=== PATIENT | female | born 1945 | race Caucasian/White ===

== ENCOUNTER 2025-01-14 07:26 | Day surgery (SDC) | payer MEDICARE, SELFPAY ==
[2025-01-14] VITALS (11 sets, daily range): BP systolic 118–151; BP diastolic 57–80; PULSE 58–72; RESP 10–20; TEMP 36.8; O2SAT 93–98; BMI 32.4
--- OUTSIDE RECORDS SUMMARY | 2025-01-14 07:33 | XMS_ITS | Clinical Summary ---
Author Organization [facility] Address [address] [place] [address] Care Team Providers Care Practicing Md Anesthesiologist Name Role Phone Bri Lechuga MD Unavailable [phone] Jazzmine Gilmore MD Primary Care Provider [phone] Allergies No known active allergies Medications multivitamin capsuleIndications :Healthcare maintenance Take 1 capsule by mouth once daily. 90 capsule 3 6 Active cholecalciferol (VITAMIN D) 1,000 unit capsuleIndications :Vitamin D deficiency Take 1 capsule by mouth once daily. 90 capsule 3 6 Active aspirin (ECOTRIN) 81 mg enteric coated tablet Take 1 tablet by mouth once daily with a meal. 0 7 Active triamcinolone 0.5% (ARISTOCORT) 0.5 % creamIndications:H and dermatitis Apply topically to affected area(s) 2 times daily. 100 g 2 0 Active diclofenac topical (VOLTAREN) 1 % gelIndications:Levi ateral hand pain,Chronic pain of right knee Apply 2 g topically to affected area(s) four times daily. 350 g 3 4 Active amLODIPine (NORVASC) 10 mg tabletIndications: Primary hypertension Take 1 Tablet (10 mg) by mouth once daily. 90 Tablet 1 5 Active rosuvastatin (CRESTOR) 20 mg tabletIndications: Hyperlipidemia, unspecified hyperlipidemia type Take 1 Tablet (20 mg) by mouth at bedtime. 90 Tablet 3 5 Active sertraline (ZOLOFT) 50 mg tabletIndications: Major depressive disorder with single episode, in full remission Take 1 Tablet (50 mg) by mouth once daily in the morning. 90 Tablet 3 5 Active omeprazole 20 mg tabletIndications: Abdominal pain, RUQ (right upper quadrant) Take 1 Tablet (20 mg) by mouth once daily before a meal. 30 Tablet 5 Active Active Problems Problem Noted Date Diagnosed Date Primary hypertension 12/05/2024 Gallbladder polyp 12/05/2024 Stage 3a chronic kidney disease 12/05/2024 Major depressive disorder wi th single episode, in full remission 12/19/2018 Diabetes type 2, controlled 03/30/2016 Elevated LFTs 12/14/2015 Hyperlipidemia 12/10/2014 Vitamin D deficiency 12/09/2014 Routine general medical exam ination at a health care facility 12/09/2014 Overview (12/09/2014): Normal dexa 2006. Consider recheck age 71. Posttraumatic stress disorder 04/16/2014 ACP (advance care planning) 12/04/2013 HTN (hypertension) 12/02/2011 Impaired fasting glucose 10/31/2011 Major depression, single episode 10/25/2011 Resolved Problems Problem Noted Date Diagnosed Date Resolved Date Unspecified essential hypertension 01/12/2007 12/14/2010 Encounters Date Type Department Care Team Description 01/01/2025 10:25 AM MENTAL HEALTH NURSE PRACTITIONER Office Visit [address] [address] Jazzmine Gilmore MD Pre-Op Exam (01/15/2025, [place], [place], [facility]) 01/01/2025 Travel 12/25/2024 9:45 AM MENTAL HEALTH NURSE PRACTITIONER Office Visit [facility] [address] [place] [address] Kelle Jacob MD Consult (9 mm polyp or sludge ball in the gallbaldder neck referred by Dr. Gilmore) 12/25/2024 Travel 12/19/2024 7:30 AM MENTAL HEALTH NURSE PRACTITIONER Ancillary Procedure [facility] [address] [place] [address] 12/19/2024 Travel 12/05/2024 7:55 AM MENTAL HEALTH NURSE PRACTITIONER Office Visit [address] [address] Jazzmine Gilmore MD Lab; Diabetes 12/05/2024 Travel 11/18/2024 10:40 AM MENTAL HEALTH NURSE PRACTITIONER Office Visit [facility] [address] [place] [address] Jononael Kieraparvin Gray, OD Eye Exam (Diabetic) 11/18/2024 Travel from Last 3 Months Immunizations Name Administration Dates Next Due COVID-19 vaccine (Pfizer-Bio NTech 30mcg/0.3mL) 12YO+ JOSH-SUCROSE PF, MDV 04/07/2022 COVID-19 vaccine (Pfizer-Bio NTech 30mcg/0.3mL) PF, MDV 01/23/2021,01/02/2021 Influenza, High-dose Inactivated 024,08/22/2018,12/15/2016,09/26 Influenza, High-dose Quadriv alent Inactivated 07/19/2023,08/26/2022,08/26/2021,09/10 Influenza, IIV3 (Age >=3 years) 10/31/2011,09/10 Influenza, Inactivated IIV3 (Age 65+ Years) Preserv Free 08/21/2019 Pneumococcal Poly,23-Valent (Pneumovax) 10/31/2011 Pneumococcal conj 13-Valent (Prevnar 13) 12/18/2017 RSV, Recombinant ADJ Reconst ituted (Arexvy 120MCG/0.5mL) 07/19/2023 Tdap 04/07/2022,10/31/2011 Zoster (Shingrix-RZV, recombinant) 05/10/2023, Family History Medical History Relation Name Comments Diabetes Brother Cancer-breast Maternal Aunt Cancer-breast Mother Cancer-breast Sister diagnosed in h er 40s Cancer-ovarian No Family History Relation Name Status Comments Brother Father Maternal Aunt Mother Alive Sister Social History Tobacco Use Types Packs/Day Years Used Date Smoking Tobacco: Never Smokeless Tobacco: Never Tobacco Cessation:Counseling Given: Yes Alcohol Use Standard Drinks/Week Comments Yes 0 (1 standard drink = 0.6 oz pur e alcohol) rare PHQ-2 Answer Date Recorded PHQ-2 TOTAL SCORE 2 05/31/2024 Social Connections Answer Date Recorded Do you often feel lonely or isolated from those around you? 0 05/31/2024 Financial Resource Strain Answer Date R ecorded Difficulty of Paying Living Expenses 3 05/31/2024 Difficulty of Paying Living Expenses Not on file 05/31/2024 Food Insecurity Answer Date Recorded Do you worry your food will run out before you are able to buy more? 1 05/31/2024 Transportation Needs Answer Date Record ed Does lack of transportation keep you from medica l appointments? 1 05/31/2024 Does lack of transportation keep you from work, meetings or getting things that you need? 1 05/31/2024 Housing Stability Answer Date Recorded What is your housing situation today? 1 05/31/2024 Utilities Answer Date Recorded Do you have trouble paying f or utilities (for example, heat, electricity, water, phone)? 1 05/31/2024 Comments No Sex and Gender Information Value Date Recorded Sex Assigned at Not on file Legal Sex Female 5:26 AM MENTAL HEALTH NURSE PRACTITIONER Gender Identity Not on file Sexual Orientation Not on file Occupation Industry Job Start Date Job End Date retired Not on file Not on file Not on file Obstetrics History Para Term AB IAB SAB Ectopic Multiple Livin g Live Births 2 2 Date Outcome GA Total Labor Labor/2nd/3rd Weight Sex Type Anes PTL Sobeida A1 A5 Name Clin Para Para Last Filed Vital Signs Vital Sign Reading Time Taken Comments Blood Pressure 128/78 01/01/2025 10:37 AM MENTAL HEALTH NURSE PRACTITIONER Pulse 72 01/01/2025 10:37 AM MENTAL HEALTH NURSE PRACTITIONER Temperature 36.4 C (97.5 F) 05/03/2017 1:47 PM CDT Respiratory Rate 16 01/12/2007 10:15 AM MENTAL HEALTH NURSE PRACTITIONER Oxygen Saturation 95% 01/01/2025 10:37 AM MENTAL HEALTH NURSE PRACTITIONER Inhaled Oxygen Concentration - - Weight 75.3 kg (166 lb) 01/01/2025 10:37 AM MENTAL HEALTH NURSE PRACTITIONER Height 153.7 cm (5' 0.5) 01/01/2025 10:37 AM CS T Body Mass Index 31.89 01/01/2025 10:37 AM MENTAL HEALTH NURSE PRACTITIONER Plan of Treatment Upcoming Encounters Date Type Department Care Team (Late st Contact Info) Description 01/14/2025 8:00 AM MENTAL HEALTH NURSE PRACTITIONER Office Visit [facility] at [address] [address] Kelle Jacob MD [address] [place] [address] 03/06/2025 7:30 AM CDT Office Visit [facility] [address] [place] [address] Jazzmine Gilmore MD [address] [place] [address] Health Maintenance Due Date Last Done Comments Depression screening for age 12+ 05/31/2025 05/31/2024, 03/02/2023, 02/28/2023, Additional history exists Medicare Wellness for age 65+ 06/01/2025, 02/28/2023, 01/14/2022, Additional history exists BMI (ht and wt on same day) for age 18+ 01/01/2026 01/01/2025, 05/31/2024, 03/21/2023, Additional history exists Tetanus booster 04/07/2032 04/07/2022, 10/31/2011 Hepatitis C screening for ag e 18-79 Completed 12/04/2013 Pneumococcal series for age 50+ Completed 8, 10/31/2011 DEXA/DXA scan for age 65+ Completed 2020, 12/23/2011 ([facility]), 01/26/2007 Tdap Completed 04/07/2022, 10/31/2011 Zoster (shingles) series for age 50+ Completed 05/10/2023, 03/01/2023 RSV vaccine for adults or Completed 07/19/2023 COVID-19 vaccine series Completed 07/26/20 24, 08/15/2023, 08/26/2022, Additional history exists Influenza for age 65+ Completed 07/26/2024 , 07/19/2023, 08/26/2022, Additional history exists Procedures Procedure Name Priority Date/Time Associated Diagnosis Comments POTASSIUM Routine 01/01/2025 11:16 AM MENTAL HEALTH NURSE PRACTITIONER Pre-op exam CREATININE Routine 01/01/2025 11:16 AM MENTAL HEALTH NURSE PRACTITIONER Pre-op exam HEMOGLOBIN Routine 01/01/2025 11:16 AM MENTAL HEALTH NURSE PRACTITIONER Pre-op exam US ABDOMEN LIMITED GALLBLADDER Routine 12/19/2024 8:45 AM MENTAL HEALTH NURSE PRACTITIONER Abdominal pain, RUQ (right upper quadrant) Elevated LFTs Gallbladder polyp URINE ALBUMIN TO CREATININE RATIO, RANDOM Routine 12/05/2024 9:20 AM MENTAL HEALTH NURSE PRACTITIONER Controlled type 2 diabetes mellitus with stage 3 chronic kidney disease, without long-term current use of insulin (HC) LDL CHOLESTEROL,DIRECT Routine 12/05/2024 7:28 AM MENTAL HEALTH NURSE PRACTITIONER Controlled type 2 diabetes mellitus with stage 3 chronic kidney disease, without long-term current use of insulin (HC) BASIC METABOLIC PANEL Routine 12/05/2024 7:28 AM MENTAL HEALTH NURSE PRACTITIONER Controlled type 2 diabetes mellitus with stage 3 chronic kidney disease, without long-term current use of insulin (HC) HEMOGLOBIN A1C MONITORING (POCT) Routine 12/05/2024 7:27 AM MENTAL HEALTH NURSE PRACTITIONER Controlled type 2 diabetes mellitus with stage 3 chronic kidney disease, without long-term current use of insulin (HC) HEPATIC FUNCTION PANEL Add On 12/05/2024 12:00 AM MENTAL HEALTH NURSE PRACTITIONER Abdominal pain, RUQ (right upper quadrant) XR DXA BONE DENSITY 2 SITES AXIAL Routine 07/01/2021 8:58 AM CDT Menopause ANTI HCV Routine 12/04/2013 4:23 PM MENTAL HEALTH NURSE PRACTITIONER Need for hepatitis C screening test from Last 3 Months or Most Recently Relevant to Health Maintenance Results * (ABNORMAL) HEMOGLOBIN (01/01/2025 11:16 AM MENTAL HEALTH NURSE PRACTITIONER) HEMOGLOBIN 16.3(H) 11.7 - 15.5 g/dL [facility] Blood BLOOD SPECIMEN / Unknown 01/01/2025 11:16 AM MENTAL HEALTH NURSE PRACTITIONER 01/01/2025 11:16 AM MENTAL HEALTH NURSE PRACTITIONER us Jazzmine Gilmore MD HEMATOLOGY Final Resul t [facility] [address] [place] [address], [place] [phone] [facility] [address] [facility] [place] [address] * POTASSIUM (01/01/2025 11:16 AM MENTAL HEALTH NURSE PRACTITIONER) POTASSIUM 4.2 3.5 - 5.3 mmol/L [facility] Blood BLOOD SPECIMEN / Unknown 01/01/2025 11:16 AM MENTAL HEALTH NURSE PRACTITIONER 01/01/2025 11:16 AM MENTAL HEALTH NURSE PRACTITIONER us Jazzmine Gilmore MD CHEMISTRY Final Resul t Performing Organization Address [facility]/ZIP Co de Phone Number [facility] [address] [place] [address], [place] [phone] [facility] [address] [facility] [place] [address] * CREATININE (01/01/2025 11:16 AM MENTAL HEALTH NURSE PRACTITIONER) CREATININE 0.87 0.60 - 1.00 mg/dL [facility] EGFR 68 > OR = 60 mL/min/1.73 m2 [facility] Blood BLOOD SPECIMEN / Unknown 01/01/2025 11:16 AM MENTAL HEALTH NURSE PRACTITIONER 01/01/2025 11:16 AM MENTAL HEALTH NURSE PRACTITIONER us Jazzmine Gilmore MD CHEMISTRY Final Resul t [facility] [address] [facility] [place] [address], [place] [phone] [facility] [address] [facility] [place] [address] * US ABDOMEN LIMITED GALLBLADDER (12/19/2024 8:45 AM MENTAL HEALTH NURSE PRACTITIONER) Anatomical Region Laterality Modality Abdomen Ultrasound 12/19/2024 10:0 4 AM MENTAL HEALTH NURSE PRACTITIONER Impressions 12/19/2024 10:04 AM MENTAL HEALTH NURSE PRACTITIONER Question 9 mm sludge ball, nonshadowing stone or polyp in the gallbladder neck Dictated by Andre Morgan MD @ 12/19/2024 10:04:23 AM (Electronically Signed) Narrative 12/19/2024 10:04 AM MENTAL HEALTH NURSE PRACTITIONER For Patients: As a result of the Cures Act, medical imaging exams and procedure reports are released immediately into your electronic medical record. You may view this report before your referring provider. If you have questions, please contact your health care provider. INDICATION: Right upper quadrant pain. Elevated liver function tests. TECHNIQUE: Conventional two-dimensional grayscale ultrasound of the gallbladder. COMPARISON: Right upper quadrant ultrasound of 03/05/2028 FINDINGS: Oval nonshadowing 9 mm structure gallbladder neck raising question of sludge ball, nonshadowing stone or polyp. No gallbladder wall thickening or pericholecystic fluid is demonstrated. The patient is reportedly not tender over the gallbladder. The common bile duct measures 4 mm. Procedure Note Andre Morgan MD - 12/19/2024 For Patients: As a result of the Cures Act, medical imagingexams and procedure reports are released immediately into your electronicmedical record. You may view this report before your referring provider.If you have questions, please contact your health care provider. INDICATION: Right upper quadrant pain. Elevated liver function tests. TECHNIQUE: Conventional two-dimensional grayscale ultrasound of the gallbladder. COMPARISON: Right upper quadrant ultrasound of 03/05/2028 FINDINGS: Oval nonshadowing 9 mm structure gallbladder neck raising question ofsludge ball, nonshadowing stone or polyp. No gallbladder wall thickeningor pericholecystic fluid is demonstrated. The patient is reportedly nottender over the gallbladder. The common bile duct measures 4 mm. IMPRESSION: Question 9 mm sludge ball, nonshadowing stone or polyp in the gallbladderneck Dictated by Andre Morgan MD @ 12/19/2024 10:04:23 AM (Electronically Signed) Jazzmine Gilmore MD US Final Resul t * URINE ALBUMIN TO CREATININE RATIO, RANDOM (12/05/2024 9:20 AM MENTAL HEALTH NURSE PRACTITIONER) ALB RAND URINE 22.4 mg/L 12/05/2024 5:25 PM MENTAL HEALTH NURSE PRACTITIONER [facility] CREATININE,URIN E 1.79 g/L 12/05/2024 5:25 PM MENTAL HEALTH NURSE PRACTITIONER [facility] ALBUMIN TO CREATININE RATIO,RAND UR 12.5 <30.0 mg/g creat 12/05/2024 5:25 PM MENTAL HEALTH NURSE PRACTITIONER [facility] Urine URINE SPECIMEN / Unknown Non-Blood / Unknown 12/05/2024 9:20 AM MENTAL HEALTH NURSE PRACTITIONER 12/05/2024 9:20 AM MENTAL HEALTH NURSE PRACTITIONER Narrative [facility] - 12/05/2024 5:25 PM MENTAL HEALTH NURSE PRACTITIONER If Albumin to Creatinine Ratio is elevated, consider the following: Elevations seen with incipient nephropathy associated with diabetes mellitus or hypertension. Stress, exercise,hematuria, and urinary tract infection may also produce elevated results. If clinically indicated, confirm with 24 Hour Albumin to Creatinine Ratio. Jazzmine Gilmore MD URINE Final Resul t [facility] [address] [place] [address], * LDL CHOLESTEROL,DIRECT (12/05/2024 7:28 AM MENTAL HEALTH NURSE PRACTITIONER) DIRECT LDL 74 <100 mg/dL [facility] Comment: Desirable range <100 mg/dL for primary prevention; <70 mg/dL for patients with CHD or diabetic patients with > or = 2 CHD risk factors. Blood BLOOD SPECIMEN / Unknown 12/05/2024 7:28 AM MENTAL HEALTH NURSE PRACTITIONER 12/05/2024 7:28 AM MENTAL HEALTH NURSE PRACTITIONER Jazzmine Gilmore MD CHEMISTRY Final Resul t [facility] [place] [id number] [address] [facility] [place] [address], [facility] [address] [address] [facility] [place] [address] * (ABNORMAL) BASIC METABOLIC PANEL (12/05/2024 7:28 AM MENTAL HEALTH NURSE PRACTITIONER) [facility] GLUCOSE 191(H) 65 - 99 mg/dL [facility] Comment: Fasting reference interval For someone without known diabetes, a glucose value >125 mg/dL indicates that they may have diabetes and this should be confirmed with a follow-up test. UREA NITROGEN (BUN) 18 7 - 25 mg/dL [facility] CREATININE 0.99 0.60 - 1.00 mg/dL [facility] EGFR 58(L) > OR = 60 mL/min/1. 73m2 [facility] BUN/CREATININE RATIO SEE NOTE: 6 - 22 (calc) [facility] Comment: Not Reported: BUN and Creatinine are within reference range. SODIUM 138 135 - 146 mmol/L [facility] POTASSIUM 5.1 3.5 - 5.3 mmol/L [facility] CHLORIDE 103 98 - 110 mmol/L [facility] CARBON DIOXIDE 27 20 - 32 mmol/L [facility] ELECTROLYTE BALANCE 8 7 - 17 mmol/L (calc) [facility] CALCIUM 9.8 8.6 - 10.4 mg/dL [facility] Blood BLOOD SPECIMEN / Unknown 12/05/2024 7:28 AM MENTAL HEALTH NURSE PRACTITIONER 12/05/2024 7:28 AM MENTAL HEALTH NURSE PRACTITIONER us Jazzmine Gilmore MD CHEMISTRY Final Resul t [employer] [facility] [address] [place] [address], [facility] [address] [place] [address] * (ABNORMAL) POCT Hemoglobin A1C Monitoring (12/05/2024 7:27 AM MENTAL HEALTH NURSE PRACTITIONER) [facility] POC HEMOGLOBIN A1C 7.2(H) <6.0 % OF TOTAL HGB [facility] Comment: Any point of care results exhibiting inconsistency with the patient's clinical status should be repeated using a different testing method. Blood BLOOD SPECIMEN / Unknown 12/05/2024 7:27 AM MENTAL HEALTH NURSE PRACTITIONER 12/05/2024 7:27 AM MENTAL HEALTH NURSE PRACTITIONER us Jazzmine Gilmore MD CHEMISTRY Final Resul t Performing Organization Address City/[facility] Co de Phone Number [facility] [address] [place] [address], [facility] [address] [place] [address] * LIVER PANEL (HEPATIC FUNCTION PANEL) (12/05/2024 12:00 AM MENTAL HEALTH NURSE PRACTITIONER) PROTEIN, TOTAL 6.8 6.1 - 8.1 g/dL [facility] ALBUMIN 4.6 3.6 - 5.1 g/dL [facility] GLOBULIN 2.2 1.9 - 3.7 g/dL (calc) [facility] ALBUMIN/GLOBULIN RATIO 2.1 1.0 - 2.5 (calc) [facility] BILIRUBIN, TOTAL 0.6 0.2 - 1.2 mg/dL [facility] BILIRUBIN, DIRECT 0.1 < OR = 0.2 mg/dL [facility] BILIRUBIN, INDIRECT 0.5 0.2 - 1.2 mg/dL (calc) [facility] ALKALINE PHOSPHATASE 62 37 - 153 U/L [facility] AST 22 10 - 35 U/L [facility] ALT 26 6 - 29 U/L [facility] Blood BLOOD SPECIMEN / Unknown 12/05/2024 12/05/2024 8:58 AM MENTAL HEALTH NURSE PRACTITIONER us Jazzmine Gilmore MD CHEMISTRY Final Resul t [employer] [facility] [address] [place] [address], [facility] [address] [place] [address] * XR DXA BONE DENSITY 2 SITES AXIAL (07/01/2021 8:58 AM CDT) Anatomical Region Laterality Modality Spine, HIPS, HIPL, HIPR Other Impressions 07/06/2021 2:00 PM CDT Normal bone density. RECOMMENDATIONS: The National Osteoporosis Foundation recommends pharmacologic treatment for patients with T-scores of -2.5 or less, patients with prior history of fragility fractures, or patients with 10-year probability of greater than 3% at hips or greater than 20% of suffering major osteoporotic fractures. Recommend continued optimization of calcium and vitamin D intake through dietary means and/or supplementation and regular exercise. Repeat scan recommended in 3-5 years. Susan Mcdonough PA-C [facility] 07/06/2021 Narrative 07/06/2021 2:00 PM CDT For Patients: Results are automatically released to your [facility] account once available, in compliance with federal regulations. This means that you may see your results before your provider has had a chance to review them. Please allow 2-3 business days for your provider to comment on the results. XR DXA Bone Mineral Density (BMD) EXAM LOCATION: [address] [address] PATIENT NAME: Vero Thurston DATE OF : 1945 EXAM DATE: 07/01/2021 REQUESTING PROVIDER: Jazzmine Gilmore MD GENDER AT : female HEIGHT: 5' 0.55 (07/01/2021) WEIGHT: 168 lb 6.4 oz (07/01/2021) MENOPAUSAL STATUS: Postmenopausal RACE/ETHNICITY: White RISK FACTORS: White Race CURRENT MEDICATION FOR BONE LOSS: NONE INDICATION: Initial scan for screening COMPARISON DATE(S): None DXA scans are compared to prior studies for a patient only when the two (or more) studies were performed on the same scanner. It is not possible to compare data generated on one scanner to data from another because there are not standards in DXA equipment. This applies even if the two scanners are made by the same mechanical systems control engineer. PROCEDURE: Dual-energy x-ray absorptiometry performed with routine technique. Reporting is completed in the form of a T-score. The T-score represents the standard deviation from peak bone mass based on young healthy adult. A Z-score is used for diagnosis in premenopausal women, and for men under the age of 50. FINDINGS: RESULT LUMBAR SPINE L1, L2, L4 BMD: 1.327 g/cm2 T-Score: + 1.2 Z-Score: + 2.5 RESULT FEMORAL NECK Right Femoral Neck T-Score: - 1.0 Left Femoral Neck T-Score: - 0.8 Right Femoral Neck Z-Score: + 0.6 Left Femoral Neck Z-Score: + 0.9 RESULT TOTAL HIP Total Hip T-Score: - 0.1 Total Hip Z-Score: + 1.4 WHO criteria: Normal: T-score at or above -1 SD Osteopenia: T-score between -1.1 and -2.4 SD Osteoporosis: T-score at or below -2.5 SD FRAX RISK CALCULATION (USED FOR OSTEOPENIA ONLY): 10-year probability of major osteoporotic fracture: 9.3%. 10-year probability of hip fracture: 1.4%. Jazzmine Gilmore MD DEXA Final Resul t * ANTI HCV [93054.2] (12/04/2013 4:23 PM MENTAL HEALTH NURSE PRACTITIONER) ANTI HCV Non-reacti ve [facility] Blood specimen (specimen) BLOOD SPECIMEN / Unknown 12/04/2013 4:23 PM MENTAL HEALTH NURSE PRACTITIONER 12/04/2013 4:08 PM MENTAL HEALTH NURSE PRACTITIONER us Fatmata Arriaga SEND OUTS Final R esult [facility] INTERNAL ZIP [id number] [place] [id number] from Last 3 Months or Most Recently Relevant to Health Maintenance Insurance [employer] MED[employer]ARE ADVANTAGE MR Advance Directives Documents on File Type Date Recorded Patient Night Order Selector Expl anation Healthcare Directive 11/05/2012 12:16 PM [place] HEALTH CARE DIRECTIVE, [facility], 02/19/2012 Care Teams Practicing Md Anesthesiologist Relationship Specialty Start Date End Date Jazzmine Gilmore MD [address] [place] [address] PCP - General Family Practice 12/18/17 Bri Lechuga MD Ophthalmology Surgery 12/04/13
[2025-01-14] MEDS: LACTATED RINGERS 1000 ML 1,000 ML 100 ML IV (08:15)
[2025-01-14] MEDS: SODIUM CHLORIDE 0.9 % (FLUSH) 10 ML SYRINGE IVF (08:18)
--- NOTE | 2025-01-14 09:03 | W.PM.H&PU ---
History & Physical Update History & Physical Update H&P Reviewed and patient assessed: No changes noted
[2025-01-14] MEDS: CEFAZOLIN 2 GM INJ IVP (09:32)
[2025-01-14] MEDS: BUPIVACAINE 0.5% 30 ML 20 ML INJECTION (09:50)
--- NOTE | 2025-01-14 10:10 | PM.GSPRC ---
Operative Note Date of procedure: 01/14/25 Pre-op diagnosis: Biliary colic Post-op diagnosis: Same Type of Procedure: Laparoscopic cholecystectomy Indications: Patient is a 79-year-old female who presented to clinic with symptoms and workup consistent with biliary colic. Risks and benefits of operative intervention were discussed at length with the patient. Risks included but was not limited to: Bleeding, infection, risk of damage to surrounding structures, possible need for additional procedures, possible need to convert to an open operation and postoperative complications such as pneumonia, pulmonary emboli or PR. All questions and concerns were addressed with the patient agreeing to proceed. Procedure Description: After discussing the risks and benefits of the procedure, the patient signed informed consent.? The operative site was marked and the patient was brought to the operating room and placed on the operating table in supine position.? Care was taken to pad the patient's pressure points.?? The patient was then intubated by anesthesia.?? The operative site was then prepped and draped in the usual sterile fashion.? A time-out was then performed. Entrance to the abdomen was gained via a 5 mm Visiport in the left upper quadrant. The abdomen was insufflated and briefly surveyed for signs of injury. There was none. 11 mm umbilical port was placed as well as 2 working ports along the right costal margin. Patient was then placed in reverse Trendelenburg position with the right side up. The gallbladder fundus was grasped and retracted cephalad. A small amount of dissection was needed to free omental adhesions from the gallbladder. The infundibulum was grasped. A combination of hook cautery and blunt dissection was used to carefully dissect out the cystic duct and artery until they could clearly be seen entering the gallbladder without any intervening structures. The gallbladder was dissected off the cystic plate to achieve the critical view. Once this was achieved the cystic duct and artery were each clipped with 2 clips proximally and 1 clip distally and transected with the scissors. The gallbladder was then taken off of the liver bed. And removed from the abdomen using an Endo-Catch bag. The gallbladder bed was surveyed for hemostasis. The ports were then removed under direct vision. The umbilical port fascia was closed with 0 Vicryl. The skin was closed with absorbable subcuticular suture. Instrument sponge and needle counts were correct at the end of the case. The patient was then woken and transferred to the PACU in stable condition. Findings: Normal appearing gallbladder, cholelithiasis. Anesthesia: GETA Surgeon: Kelle Jacob MD Estimated blood loss (mL): 5 Specimen: Gallbladder Condition: stable Disposition: PACU
--- NOTE | 2025-01-14 10:14 | W.ANESCHARGE ---
Anesthesia Charges Start Date/Time Anesthesia Start Date: 01/14/25 Anesthesia Start Time: 09:08 Stop Date/Time Anesthesia Stop Date: 01/14/25 Anesthesia Stop Time: 10:12 Summary Extremes of Age - Over 70 or under 1: NURSERY NURSE Coding CPT Codes CPT Codes: ANESTH SURG UPPER ABDOMEN - 42821 ([id number]) P2 - PATIENT W/MILD SYST DISEASE, QX - NURSERY NURSE SVC W/ MD MED DIRECTION, QK - MECHANICAL ENGINEERING SPECIALIST 2-4 CNCRNT ANES PROC Additional Codes: Summary - Extremes of Age - Over 70 or under 1: NURSERY NURSE ([id number])
--- NOTE | 2025-01-14 10:16 | W.ANESCHARGE ---
Anesthesia Charges Start Date/Time Anesthesia Start Date: 01/14/25 Anesthesia Start Time: 09:08 Stop Date/Time Anesthesia Stop Date: 01/14/25 Anesthesia Stop Time: 10:12 Summary Extremes of Age - Over 70 or under 1: MDA Coding CPT Codes CPT Codes: ANESTH SURG UPPER ABDOMEN - 10459 ([id number]) QK - FISHER MUSSEL 2-4 CNCRNT ANES PROC, QX - CLEANING MANAGER SVC W/ MD MED DIRECTION, P2 - PATIENT W/MILD SYST DISEASE Additional Codes: Summary - Extremes of Age - Over 70 or under 1: MDA ([id number])
== END 2025-01-14 11:55 | disposition home or self-care (01) ==
PROVIDERS: PCP Family Medicine; Visit Provider Surgery
PROC: 0FT44ZZ Resection of Gallbladder, Percutaneous Endoscopic Approach (ICD-10-PCS; CPT 47562; principal; 2025-01-14 09:00)
DX: K80.10 Calculus of gallbladder with chronic cholecystitis without obstruction (principal); I12.9 Hypertensive chronic kidney disease with stage 1 through stage 4 chronic kidney disease, or unspecified chronic kidney disease; E11.22 Type 2 diabetes mellitus with diabetic chronic kidney disease; N18.31 Chronic kidney disease, stage 3a
CPT/HCPCS: 47562; 00790; 82962; 88304; 99100; J0330; J0665; J0690; J1100; J2405; J2704; J2710; J3010; J7120